=== PATIENT | female | born 1985 | race Caucasian/White ===

== ENCOUNTER 2021-08-05 11:16 | Outpatient (CLI) | payer OTHER, SELFPAY ==
[2021-08-05 11:51] LABS: Basophils Absolute Auto 0.1 K/mm3 (0.0-0.1); Basophils Percent Auto 0.6 % (0.2-1.2); Eosinophils Percent Auto 0.4 % (0-4.4); Hematocrit 38.4 % (37.0-47.0); Hemoglobin 12.8 g/dL (12.0-15.0); Immature Granulocyte Absolute 0.02 K/mm3 (0.00-0.031); Immature Granulocyte Percent A 0.2 % (0-0.5); Lymphocytes Absolute Auto 2.12 K/mm3 (0.9-3.2); Lymphocytes Percent Auto 22.1 % (18.3-44.2); Mean Corpuscular HGB Conc 33.3 g/dl (32-36); Mean Corpuscular Hemoglobin 30.7 pg (26-34); Mean Corpuscular Volume 92.1 fl (80-100); Mean Platelet Volume 8.8 fl (7.4-10.4); Monocytes Absolute Auto 0.5 K/mm3 (0.1-0.6); Monocytes Percent Auto 5.5 % (2.6-8.5); Neutrophils Absolute Auto 6.8 K/mm3 (1.3-6.7); Neutrophils Percent Auto 71.2 % (45.5-73.1); Platelet Count Result 336 k/mm3 (150-375); Red Blood Count 4.17 M/mm3 (4.2-5.4); Red Cell Distribution Width 12.1 % (11.5-14.5); White Blood Count 9.6 K/mm3 (4.5-10.0)
[2021-08-05 12:01] LABS: Anion Gap 5 mmol/L (8-16); Blood Urea Nitrogen 10 mg/dL (7-17); Calcium 8.9 mg/dL (8.4-10.2); Carbon Dioxide 28 mmol/L (22-30); Chloride 104 mmol/L (98-107); Cholesterol 199 mg/dL (0-200); Estimated Glomerular Filt Rate > 60; Glucose 98 mg/dL (65-110); HDL Direct 62 mg/dL; Potassium 3.8 mmol/L (3.4-5.0); Sodium 137 mmol/L (137-145); Triglycerides 48 mg/dL (<150)
[2021-08-05 12:12] LABS: LDL Cholesterol Direct 104 mg/dL
== END 2021-08-05 11:17 | disposition home or self-care (01) ==
PROVIDERS: PCP Family Medicine; Visit Provider Physician Assistant Medical
DX: Z13.0 Encounter for screening for diseases of the blood and blood-forming organs and certain disorders involving the immune mechanism (principal); Z13.1 Encounter for screening for diabetes mellitus; Z13.220 Encounter for screening for lipoid disorders
CPT/HCPCS: 36415; 80048; 80061; 85025

== ENCOUNTER 2021-09-24 08:36 | Outpatient (CLI) | payer OTHER, SELFPAY ==
--- NOTE | ~2021-09-24 | XR_ITS ---
EXAMINATION: XR lumbar spine min 4V EXAM DATE: 09/24/2021 09:00 INDICATION: M54.9 - Low back pain,no recent injury,reports bending often. TECHNIQUE: Lumber spine frontal, lateral, bilateral oblique projections. Coned down frontal and lat eral L5-S1 lumbar projections for interpretation. There is no prior study for comparison. FINDINGS: The vertebral bodies are aligned in the AP dimension. Vertebral body and disc heights are w ell-maintained. Mild facet arthropathy. No spondylolysis. Sacrum, sacroiliac joints, sacral arcuate l katelyn are intact. Paraspinal soft tissue is unremarkable. IMPRESSION: Mild lumbar facet arthropathy. Reviewed, dictated and finalized at location A.
== END 2021-09-24 08:37 | disposition home or self-care (01) ==
LOC: ANHIMG 08:38
PROVIDERS: PCP Family Medicine; Visit Provider Nurse Practitioner Family
DX: M54.9 Dorsalgia, unspecified (principal); M12.88 Other specific arthropathies, not elsewhere classified, other specified site
CPT/HCPCS: 72110

== ENCOUNTER 2021-09-28 09:46 | Emergency (ER) | payer OTHER, SELFPAY ==
[2021-09-28 09:50] VITALS: BP 122/76; PULSE 97; RESP 16; TEMP 36.3; O2SAT 100
--- NOTE | 2021-09-28 09:59 | ED.URI ---
HPI - URI/Sore Throat General Chief Complaint: Upper Respiratory Infection Stated Complaint: Sore Throat/Fever Time Seen by Provider: 09/28/21 10:25 Source: patient, RN notes reviewed and old records reviewed Mode of arrival: ambulatory Limitations: no limitations History of Present Illness HPI Narrative: 36-year-old female who presents to [facility] with complaints of sore throat since last evening with fevers up to 102.4F. Patient rates her pain as 5/10 with pain increased with swallowing has been taking Tylenol for her symptoms. Patient denies any nasal congestion or drainage or any cough. Patient does state history of previous strep throat. Patient has had COVID vaccinations and flu shot this season. MD elicited complaint: sore throat Related Data Allergies Allergy/AdvReac Type Severity Reaction Status Date / Time progesterone Allergy Rash Verified 09/28/21 09:58 [From Endometrin] hydrocodone AdvReac Mild Nausea and Verified 09/28/21 09:58 Vomiting Review of Systems Review of Systems: CONSTITUTIONAL: Positive fever, chills, or sweats. EYES: Denies visual changes, redness, or discharge. ENT: Denies rhinorrhea, congestion, positive sore throat, denies otalgia. CARDIOVASCULAR: Denies chest pain, palpitations, or edema. RESPIRATORY: Denies cough or dyspnea. GASTROINTESTINAL: Denies abdominal pain, nausea, vomiting, or diarrhea. GENITOURINARY: Denies dysuria or hematuria. SKIN: Denies rash or itching. MUSCULOSKELETAL: Denies back pain, joint pain, or myalgia. NEUROLOGIC: Denies headache, numbness, or weakness. PSYCHIATRIC: Denies anxiety or depression. All systems reviewed & are unremarkable except as noted in HPI and below [facility] Past Medical History Medical History (Updated 09/28/21 @ 10:43 by Terrie Parks NP) BMI 26.0-26.9,adult Body mass index [BMI] 24.0-24.9, adult Overweight (BMI 25.0-29.9) Surgical History Surgical History History of placement of ear tubes Family History Family History Mother Diabetes mellitus Father Hypertension Social History Social History (Updated 04/10/22 @ 10:55 by OTTO Carvajal Smoking status: Never smoker Alcohol intake: current Substance use: never Substance use type: does not use Living arrangements: with family Gender identity (if verbalized by the patient): Female Spiritual care concerns: No Agree to blood products: Yes Comments At time of signature, agree with nursing past medical, surgical, social and family history. There is no relevant family history pertinent to the presenting complaint Exam Narrative: GENERAL: Well-appearing, well-nourished, and in no acute distress. HEAD: Normocephalic, atraumatic. EYES: PERRLA and EOMI. ENT: Nares clear, no rhinorrhea or epistaxis. Mucous membranes moist.TM's normal with good light reflex, throat red with white exudates on tonsils with tonsils enlarged and red. NECK: Supple.lymphadenopathy CHEST: Clear to auscultation. No respiratory distress.SAO2 100% on room air HEART: Regular rate and rhythm. No murmur heard. Normal peripheral pulses. ABDOMEN: Soft, nontender, nondistended, normal active bowel sounds. EXTREMITIES: Normal range of motion. No edema. SKIN: Warm, dry, no rash. NEURO: No focal deficits. Alert and oriented x3. Course Course Level of Care: Express Care Visit Vital Signs Vital signs: Vital Signs Temperature 36.3 C L 09/28/21 09:50 Pulse Rate 97 09/28/21 09:50 Respiratory Rate 16 09/28/21 09:50 Blood Pressure 122/76 09/28/21 09:50 Pulse Oximetry 100 09/28/21 09:50 Temperature 36.3 C L 09/28/21 09:50 Pulse Rate 97 09/28/21 09:50 Respiratory Rate 16 09/28/21 09:50 Blood Pressure 122/76 09/28/21 09:50 Pulse Oximetry 100 09/28/21 09:50 MDM - URI/Sore Throat Differential Diagnosis Differential diagnosis: Likely upper respir
== END 2021-09-28 10:45 | disposition home or self-care (01) ==
PROVIDERS: Emergency Provider Registered Nurse; PCP Family Medicine
DX: J03.90 Acute tonsillitis, unspecified (principal)
CPT/HCPCS: 87081; 87804; 87880; 99213; G0463

== ENCOUNTER 2022-02-07 09:33 | Outpatient (CLI) | payer OTHER, SELFPAY ==
--- NOTE | ~2022-02-07 | MR_ITS ---
EXAMINATION: MR lumbar spine wo con DATE: 02/07/2022 10:01 INDICATION: Low back pain. Left leg pain and numbness. TECHNIQUE: Magnetic resonance imaging (MRI) of the lumbar spine was performed without intravenous con trast. Sequences included sagittal T2-weighted FSE, sagittal T2-weighted FS FSE, sagittal T1-weighted FSE, and axial T2-weighted FSE. COMPARISON: Lumbar spine radiographs 09/24/2021 FINDINGS: There is 7 degrees levocurvature of lumbar spine. Vertebral body heights are normal. Interv ertebral disc heights are normal. The distal spinal cord signal intensity is normal. The conus medull ramon is at T12. The following disc levels are specifically discussed: L1-L2: The disc does not extend beyond the endplate margin. There is no facet joint osteoarthritis. T here is no neural foraminal stenosis. There is no central canal stenosis. L2-L3: The disc does not extend beyond the endplate margin. There is no facet joint osteoarthritis. T here is no neural foraminal stenosis. There is no central canal stenosis. L3-L4: The disc does not extend beyond the endplate margin. There is mild bilateral facet joint osteo arthritis. There is no neural foraminal stenosis. There is no central canal stenosis. L4-L5: The disc does not extend beyond the endplate margin. There is mild bilateral facet joint osteo arthritis. There is no neural foraminal stenosis. There is no central canal stenosis. L5-S1: There is a broad-based left subarticular and foraminal zone extrusion with mass effect on left S1 nerve root in left lateral recess. There is mild bilateral facet joint osteoarthritis. There is m ild bilateral neural foraminal stenosis. There is mild central canal stenosis at the midline. There i s severe stenosis of left lateral recess. IMPRESSION: 1. Extrusion at L5-S1 with mass effect on left S1 nerve root in left lateral recess. Reviewed, dictated and finalized at location A. IMPRESSION: 1. Extrusion at L5-S1 with mass effect on left S1 nerve root in left lateral re cess.
== END 2022-02-07 09:34 | disposition home or self-care (01) ==
PROVIDERS: PCP Family Medicine; Visit Provider Nurse Practitioner Family
DX: M54.30 Sciatica, unspecified side (principal); M54.9 Dorsalgia, unspecified; M51.27 Other intervertebral disc displacement, lumbosacral region
CPT/HCPCS: 72148

== ENCOUNTER 2022-08-14 08:14 | Outpatient (CLI) | payer OTHER, SELFPAY ==
[2022-08-14 18:34] LABS: Basophils Absolute Auto 0.1 K/mm3 (0.0-0.1); Basophils Percent Auto 0.8 % (0.2-1.2); Eosinophils Absolute Auto 0.2 K/mm3 (0-0.3); Eosinophils Percent Auto 2.6 % (0-4.4); Hematocrit 40.6 % (37.0-47.0); Immature Granulocyte Absolute 0.01 K/mm3 (0.00-0.031); Immature Granulocyte Percent A 0.2 % (0-0.5); Lymphocytes Absolute Auto 1.72 K/mm3 (0.9-3.2); Lymphocytes Percent Auto 26.5 % (18.3-44.2); Mean Corpuscular Volume 93.5 fl (80-100); Mean Platelet Volume 9.7 fl (7.4-10.4); Monocytes Absolute Auto 0.4 K/mm3 (0.1-0.6); Monocytes Percent Auto 6.8 % (2.6-8.5); Neutrophils Absolute Auto 4.1 K/mm3 (1.3-6.7); Neutrophils Percent Auto 63.1 % (45.5-73.1); Platelet Count Result 366 k/mm3 (150-375); Red Blood Count 4.34 M/mm3 (4.2-5.4); Red Cell Distribution Width 13.3 % (11.5-14.5); White Blood Count 6.5 K/mm3 (4.5-10.0)
[2022-08-14 18:56] LABS: Anion Gap 7 mmol/L (8-16); Blood Urea Nitrogen 12 mg/dL (7-17); Calcium 9.4 mg/dL (8.4-10.2); Carbon Dioxide 29 mmol/L (22-30); Chloride 102 mmol/L (98-107); Cholesterol 216 mg/dL (0-200); Estimated Glomerular Filt Rate > 60; Glucose 87 mg/dL (65-110); HDL Direct 47 mg/dL; Potassium 4.5 mmol/L (3.4-5.0); Sodium 138 mmol/L (137-145); Triglycerides 51 mg/dL (<150)
[2022-08-14 19:06] LABS: LDL Cholesterol Direct 117 mg/dL
== END 2022-08-14 08:15 | disposition home or self-care (01) ==
LOC: ANHBWCLAB 08:15
PROVIDERS: PCP Family Medicine; Visit Provider Physician Assistant Medical
DX: Z13.1 Encounter for screening for diabetes mellitus (principal); Z13.0 Encounter for screening for diseases of the blood and blood-forming organs and certain disorders involving the immune mechanism; Z13.220 Encounter for screening for lipoid disorders
CPT/HCPCS: 36415; 80048; 80061; 85025

== ENCOUNTER 2023-09-16 07:41 | Outpatient (CLI) | payer BC, SELFPAY ==
[2023-09-16 18:52] LABS: Basophils Absolute Auto 0.1 K/mm3 (0.0-0.1); Basophils Percent Auto 0.9 % (0.2-1.2); Eosinophils Absolute Auto 0.2 K/mm3 (0-0.3); Eosinophils Percent Auto 3.2 % (0-4.4); Hematocrit 44.4 % (37.0-47.0); Hemoglobin 13.5 g/dL (12.0-15.0); Immature Granulocyte Absolute 0.01 K/mm3 (0.00-0.031); Immature Granulocyte Percent A 0.2 % (0-0.5); Lymphocytes Absolute Auto 2.04 K/mm3 (0.9-3.2); Lymphocytes Percent Auto 31.2 % (18.3-44.2); Mean Corpuscular HGB Conc 30.4 g/dl (32-36); Mean Corpuscular Hemoglobin 30.8 pg (26-34); Mean Corpuscular Volume 101.1 fl (80-100); Monocytes Absolute Auto 0.5 K/mm3 (0.1-0.6); Monocytes Percent Auto 8.3 % (2.6-8.5); Neutrophils Absolute Auto 3.7 K/mm3 (1.3-6.7); Neutrophils Percent Auto 56.2 % (45.5-73.1); Platelet Count Result 338 k/mm3 (150-375); Red Blood Count 4.39 M/mm3 (4.2-5.4); Red Cell Distribution Width 12.8 % (11.5-14.5); White Blood Count 6.5 K/mm3 (4.5-10.0)
[2023-09-16 19:05] LABS: Anion Gap 7 mmol/L (4-12); Blood Urea Nitrogen 17 mg/dL (7-17); Calcium 9.4 mg/dL (8.4-10.2); Carbon Dioxide 27 mmol/L (22-30); Chloride 105 mmol/L (98-107); Cholesterol 193 mg/dL (0-200); Estimated Glomerular Filt Rate > 60; Glucose 93 mg/dL (65-110); HDL Direct 47 mg/dL; Potassium 4.3 mmol/L (3.4-5.0); Sodium 139 mmol/L (137-145); Triglycerides 55 mg/dL (<150)
[2023-09-16 19:20] LABS: LDL Cholesterol Direct 112 mg/dL
== END 2023-09-16 07:42 | disposition home or self-care (01) ==
LOC: ANHBWCLAB 07:43
PROVIDERS: PCP Family Medicine; Visit Provider Physician Assistant Medical
DX: E78.5 Hyperlipidemia, unspecified (principal); Z13.1 Encounter for screening for diabetes mellitus; Z13.0 Encounter for screening for diseases of the blood and blood-forming organs and certain disorders involving the immune mechanism; Z13.220 Encounter for screening for lipoid disorders
CPT/HCPCS: 36415; 80048; 80061; 85025

== ENCOUNTER 2024-09-07 07:43 | Outpatient (CLI) | payer BC, SELFPAY ==
--- OUTSIDE RECORDS SUMMARY | 2024-09-07 07:51 | XMS_ITS | Clinical Summary ---
Author Organization [facility] Address [facility] [address] [place] [address] Care Team Providers Care Grocery Clerk Name Role Phone Unavailable Primary Care Provider Unavailabl e Social History Tobacco Use Types Packs/Day Years Used Date Smoking Tobacco: Never Assessed Comments Unknown Sex and Gender Information Value Date Recorded Sex Assigned at Not on file Legal Sex Female 7:50 AM CDT Gender Identity Not on file Sexual Orientation Not on file Last Filed Vital Signs Vital Sign Reading Time Taken Comments Blood Pressure 102/60 06/26/2015 2:38 PM FRONT OFFICE DIRECTOR Pulse 64 06/26/2015 2:38 PM FRONT OFFICE DIRECTOR Temperature - - Respiratory Rate - - Oxygen Saturation - - Inhaled Oxygen Concentration - - Weight 71.7 kg (158 lb) 06/26/2015 2:38 PM FRONT OFFICE DIRECTOR Height 180.3 cm (5' 11 ) 06/26/2015 2:38 PM FRONT OFFICE DIRECTOR Body Mass Index 22.04 06/26/2015 2:38 PM FRONT OFFICE DIRECTOR Plan of Treatment Health Maintenance Due Date Last Done Comments Cervical Cancer Screening Pa p Smear (Age 30 to 64) Every 3 Years 1986 Annual Physical 1989 Hepatitis C 2004 DTaP, Tdap and Td Vaccines ( 1 - Tdap) 2005 Hepatitis B Vaccines (1 of 3 - 19+ 3-dose series) 2005 Cervical Cancer Screening Pa p with HPV Testing (Age 30 to 64) Every 5 Years 2016 Cervical Cancer Screening with HPV 2016 COVID-19 Vaccine (2023-2 5 season) 2024 Influenza Adult (#1) 2024 HPV Vaccines Aged Out No longer eligi ble based on patient's age to complete this topic Meningococcal B Vaccine Aged Out No l onger eligible based on patient's age to complete this topic Meningococcal Vaccine Aged Out No alan hanh eligible based on patient's age to complete this topic Pneumococcal Vaccine: Pediat rics (0 to 5 Years) and At-Risk Patients (6 to 64 Years) Aged Out No longer eligible b ased on patient's age to complete this topic RSV Immunizations Under 20 Months Aged Out No longer eligible based on patient's age to complete this topic Advance Directives Documents on File Type Date Recorded Patient Payroll Administrative Assistant Expl anation Advance Directives and Living Will 11/24/2015 12:00 AM ADVANCED DIRECTIVES
--- OUTSIDE RECORDS SUMMARY | 2024-09-07 07:51 | XMS_ITS | Encounter Summary ---
Author Organization [facility] Address [address] [place] [address] Care Team Providers Care Chief Juvenile Probation Officer Name Role Phone Will Yañez MD Primary Care Provider [phone] Gaston Apple MD Unavailable Unavailable Twyla Torrez Unavailable [phone] Encounter Details Date Type Department Care Team (Late st Contact Info) Description 02/16/2022 [facility] [address] [place] [address] Ralf Auguste MD [address] [place], [place] [id number] Social History Tobacco Use Types Packs/Day Years Used Date Smoking Tobacco: Never Smokeless Tobacco: Never Alcohol Use Standard Drinks/Week Comments Not Currently 0 (1 standard drink = 0.6 oz pur e alcohol) Sex and Gender Information Value Date Recorded Sex Assigned at Not on file Gender Identity Not on file Sexual Orientation Not on file documented as of this encounter Plan of Treatment Not on file documented as of this encounter Visit Diagnoses Not on filedocumented in this encounter Care Teams Chief Juvenile Probation Officer Relationship Specialty Start Date End Date Will Yañez MD [address] [place] [address] PCP - General 02/10/22 Gaston Apple MD PCP - Attributed-[employer] [place] 06/21/22 10/18/22 Twyla Torrez PA [address] [place] [address] PCP - Attributed[facility] [place] 10/19/22 08/08/23 documented as of this encounter
--- OUTSIDE RECORDS SUMMARY | 2024-09-07 07:51 | XMS_ITS | Clinical Summary ---
Author Organization [facility] Address [address] [place] [address] Care Team Providers Care Shop Hand Name Role Phone iWll Yañez MD Primary Care Provider [phone] Source Comments [facility],non-owned Affiliates and Associated Physician Practices is amultiple site organization consisting of ambulatory clinics and hospital sitesin [place], [place], [place] and [place]. This disclosure is being madepursuant to the Care Everywhere program and may not contain all information available regarding this patient. Last updated 18.[facility] Allergies Active Allergy Reactions Criticality Noted Date Comments Hydrocodone Nausea and/or Vomiting,Vomiting Progesterone Rash Medium 02/12/2022 Medications * Be aware that medications may not be up to date on this document. Alwaysverify current medications with the patient. Medication Sig Dispensed Refills Start Date End Date Status acetaminophen (Tylenol) 500 MG tablet 08/19/2021 Active Active Problems Problem Noted Date Diagnosed Date Lumbar radiculopathy Social History Tobacco Use Types Packs/Day Years Used Date Smoking Tobacco: Never Smokeless Tobacco: Never Tobacco Cessation:Counseling Given: Not Answered Alcohol Use Standard Drinks/Week Comments Not Currently 0 (1 standard drink = 0.6 oz pur e alcohol) PHQ-2 Answer Date Recorded PHQ2 TOTAL SCORE 0 04/21/2022 Sex and Gender Information Value Date Recorded Sex Assigned at Not on file Gender Identity Not on file Sexual Orientation Not on file Last Filed Vital Signs Vital Sign Reading Time Taken Comments Blood Pressure 117/83 04/21/2022 10:08 AM CDT Pulse 99 04/21/2022 10:08 AM CDT Temperature 36.7 C (98 F) 04/21/2022 10:08 AM CDT Respiratory Rate 11 03/16/2022 5:45 PM CDT Oxygen Saturation 97% 04/21/2022 10: 08 AM CDT Inhaled Oxygen Concentration - - Weight 85.7 kg (188 lb 14.4 oz) 022 10:08 AM CDT Height 180.3 cm (5' 11 ) 04/21/2022 10: 08 AM CDT Body Mass Index 26.35 04/21/2022 10:08 AM CDT Plan of Treatment Health Maintenance Due Date Last Done Comments PAP SMEAR 1986 HIV SCREENING 2001 HEPATITIS C SCREENING 07/22/2004 DTAP/TDAP/TD VACCINES (1 - Tdap) 2005 HEPATITIS B VACCINE (1 of 3 - 19+ 3-dose series) 2005 COVID-19 VACCINE (3 - 2023-2 5 season) 2024 06/28/2020, 06/07/2020 INFLUENZA VACCINE (#1) 2024 05/24/2012 DEPRESSION SCREENING 06/21/2024 04/21/2022 ZOSTER VACCINE (1 of 2) 2036 HIB VACCINE Aged Out No longer eligi ble based on patient's age to complete this topic HPV VACCINE Aged Out No longer eligi ble based on patient's age to complete this topic MENINGOCOCCAL (Group B) VACCINE SHARED DECISION-MAKING Aged Out No longer eligible based on patient's age to complete this topic MENINGOCOCCAL GROUPS A/C/Y/W VACCINE Aged Out No longer eligible b ased on patient's age to complete this topic PNEUMOCOCCAL VACCINE Aged Out No long er eligible based on patient's age to complete this topic Care Teams Shop Hand Relationship Specialty Start Date End Date Will Yañez MD [address] [place] [address] PCP - General 02/10/22
[2024-09-07 08:03] LABS: Basophils Absolute Auto 0.1 K/mm3 (0.0-0.1); Basophils Percent Auto 0.7 % (0.2-1.2); Eosinophils Absolute Auto 0.2 K/mm3 (0-0.3); Eosinophils Percent Auto 2.1 % (0-4.4); Hematocrit 40.8 % (37.0-47.0); Hemoglobin 13.1 g/dL (12.0-15.0); Immature Granulocyte Absolute 0.01 K/mm3 (0.00-0.031); Immature Granulocyte Percent A 0.1 % (0-0.5); Lymphocytes Absolute Auto 1.83 K/mm3 (0.9-3.2); Mean Corpuscular HGB Conc 32.1 g/dl (32-36); Mean Corpuscular Hemoglobin 30.9 pg (26-34); Mean Corpuscular Volume 96.2 fl (80-100); Mean Platelet Volume 9.1 fl (7.4-10.4); Monocytes Absolute Auto 0.5 K/mm3 (0.1-0.6); Monocytes Percent Auto 7.1 % (2.6-8.5); Neutrophils Absolute Auto 4.8 K/mm3 (1.3-6.7); Platelet Count Result 292 k/mm3 (150-375); Red Blood Count 4.24 M/mm3 (4.2-5.4); Red Cell Distribution Width 11.9 % (11.5-14.5); White Blood Count 7.3 K/mm3 (4.5-10.0)
[2024-09-07 09:05] LABS: Anion Gap 7 mmol/L (4-12); Blood Urea Nitrogen 16 mg/dL (7-17); Calcium 9.2 mg/dL (8.4-10.2); Carbon Dioxide 29 mmol/L (22-30); Chloride 103 mmol/L (98-107); Cholesterol 185 mg/dL (0-200); Estimated Glomerular Filt Rate > 60; Glucose 104 mg/dL (65-110); HDL Direct 62 mg/dL; Potassium 4.2 mmol/L (3.4-5.0); Sodium 139 mmol/L (137-145); Triglycerides 59 mg/dL (<150)
[2024-09-07 09:16] LABS: LDL Cholesterol Direct 90 mg/dL
== END 2024-09-07 07:44 | disposition home or self-care (01) ==
LOC: ANHLAB 07:47
PROVIDERS: PCP Family Medicine; Visit Provider Physician Assistant Medical
DX: Z13.220 Encounter for screening for lipoid disorders (principal); Z13.1 Encounter for screening for diabetes mellitus; Z13.0 Encounter for screening for diseases of the blood and blood-forming organs and certain disorders involving the immune mechanism; E78.5 Hyperlipidemia, unspecified
CPT/HCPCS: 36415; 80048; 80061; 85025